=== PATIENT | female | born 1950 | race Caucasian/White ===

== ENCOUNTER 2016-08-13 12:11 | Emergency (ER) | payer MEDICARE, BC ==
--- NOTE | 2016-08-13 14:12 | RAD ---
HISTORY: Left shoulder pain, trauma COMPARISONS: None VIEWS: 4, frontal and oblique views of the left ventricle with frontal and outlet views of the left shoulder FINDINGS: BONE DENSITY: Normal. BONES: There is a comminuted nondisplaced fracture of the mid left clavicle, overriding approximately 2 cm. JOINTS: There is no arthropathy. ALIGNMENT: There is no dislocation. SOFT TISSUES: Unremarkable. OTHER FINDINGS: There is no appreciable pneumothorax IMPRESSION: COMMINUTED, OVERRIDING FRACTURE OF THE MID LEFT CLAVICLE
--- NOTE | 2016-08-13 14:21 | ED ---
Upper Extremity Pain - HPI Summary HPI Summary: Pt her w/ Lt shoulder pain after falling at track meet earlier today - was tripped as she was competing in a 1 mile run. Landed directly on shoulder and side of arm - brush burn and pain in clavicle - pain w/ moving Lt arm - believes she broke her clavicle. No pain with inspiration nor shortness of breath or difficulty breathing. Tetanus UTD 2014. Denies LOC, head injury, numbness, tingling, weakness. - History of Current Complaint Chief Complaint: EDGeneral Stated Complaint: FALL, SHOULDER INJURY Time Seen by Provider: 08/13/16 13:34 Hx Obtained From: Patient, Family/Insurance Billing Clerk - PMH/Surg Hx/FS Hx/Imm Hx Previously Healthy: Yes Endocrine/Hematology History: Denies: Hx Anticoagulant Therapy, Hx Blood Disorders Musculoskeletal History: Reports: Hx Osteoporosis - osteopenia - takes calcium and magnesium Infectious Disease History: No Infectious Disease History: Denies: Traveled Outside the [place] in Last 30 Days - Family History Known Family History: Positive: Cardiac Disease - mom Negative: Diabetes - Social History 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, 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 Lives: With Family - Alcohol Use: Rare Hx Substance Use: No Substance Use Type: Reports: None Hx Tobacco Use: No Smoking Status (MU): Never Smoked Tobacco Review of Systems Negative: Fatigue Eyes: Negative Negative: Dental Pain Negative: Chest Pain Negative: Shortness Of Breath, Cough Negative: Abdominal Pain, Vomiting, Nausea Negative: flank pain, hematuria Musculoskeletal: Other - see HPI Skin: Other - see HPI Neurological: Negative Psychological: Normal All Other Systems Reviewed And Are Negative: Yes Physical Exam Triage Information Reviewed: Yes Vital Signs On Initial Exam: Initial Vitals Temp Pulse Resp BP Pulse Ox 98.7 F 88 12 113/63 100 08/13/16 12:30 08/13/16 12:30 08/13/16 12:30 08/13/16 12:30 08/13/16 12:30 Vital Signs Reviewed: Yes Appearance: Positive: Well-Appearing, No Pain Distress - at rest - pain w/ trying to move Lt arm, Lt calvicle is grossly deformed and TTP; pain w/ transition from sitting to standing, Thin Skin: Positive: Warm - no erythema or break in skin over clavicle however she had superficial abrasions over her deltoid area and scapular area - no active bleeding Head/Face: Positive: Normal Head/Face Inspection - NTTP Eyes: Positive: Normal, EOMI, ALBIN - no photosensitivity, Conjunctiva Clear ENT: Positive: Hearing grossly normal, Pharynx normal, TMs normal - no hemotympanum Dental: Negative: Dental Fracture @ Neck: Positive: Supple, Nontender Respiratory/Lung Sounds: Positive: Clear to Auscultation, Breath Sounds Present. Negative: Decreased Breath Sounds, Rales, Rhonchi, Subcutaneous Emphysema, Tracheal Deviation, Wheezes Cardiovascular: Positive: Normal, RRR, Pulses are Symmetrical in both Upper and Lower Extremities Abdomen Description: Positive: Nontender, Soft Bowel Sounds: Positive: Present Musculoskeletal: Positive: Pain @ - as in "Appearance" - FROM cervical spine - spinous pp NTTP; elbow, forearm, wrist, hand NTTP, w/o deformity and moving well ; ribs are NTTP and w/o flail chest or paradoxycal movements Neurological: Positive: Normal, Sensory/Motor Intact, Alert, Oriented to Person Place, Time, CN Intact II-III, Normal Gait, Facial Symmetry, Speech Normal Psychiatric: Positive: Normal Procedures - Splinting Location: Lt UE Pre-Made Type: sling Pre-Proc Neuro Vasc Exam: normal Post-Proc Neuro Vasc Exam: normal Diagnostics - Vital Signs Vital Signs Temp Pulse Resp BP Pulse Ox 08/13/16 14:04 97.2 F 91 16 138/73 100 08/13/16 12:30 98.7 F 88 12 113/63 100 - Laboratory Lab Statement: Any lab studies that have been ordered have been reviewed, and results considered in the medical decision making process. Course/Dx - Course Course Of Treatment: Pt w/ Lt clavicle fx. Addressed care - pt declining stronger pain medication in ED and for home use. She will f/u w/ ortho in [place]. Education about abrasion care as well. Reviewed danger s/sx of when to return to ED - pt and aware. - Diagnoses Provider Diagnoses: Closed left clavicular fracture, Abrasions of multiple sites - Physician Notifications Discussed Care Of Patient With: DR. WASHBURN -pt reports she is in from out of town and johny f/u w/ her ortho in [place] but is aware she may see Dr. Washburn if she prefers. Advised to sling and follow-up with ortho this week. Pt aware. Discharge - Discharge Plan Condition: Stable Disposition: HOME Patient Education Materials: Clavicle Fracture (ED), How to Use a Sling (GEN) Referrals: Shamika Knapp PA [Physician [employer] Machinist] - Devyn Gore MD,Tano Roy [Medical Doctor] - Additional Instructions: Rest in sling Ice Take ibuprofen with food as needed for pain Follow-up with orthopedist this week - call tomorrow to schedule an appointment *If you develop numbness, tingling, weakness or trouble breathing, return to ED
[2016-08-13] MEDS ORDERED: Ibuprofen TAB* 600 MG PO ONE (14:23)
== END 2016-08-13 15:07 | disposition home or self-care (01) ==
LOC: ED 12:11
DX: S42.002A Fracture of unspecified part of left clavicle, initial encounter for closed fracture (principal); T14.8 Other injury of unspecified body region; W18.09XA Striking against other object with subsequent fall, initial encounter; Y92.89 Other specified places as the place of occurrence of the external cause; Y93.02 Activity, running; M81.0 Age-related osteoporosis without current pathological fracture
CPT/HCPCS: 99282; A9270-GY